=== PATIENT | male | born 1985 | race African-American/Black ===

== ENCOUNTER 2018-10-26 08:38 | Emergency (ER) | payer SELFPAY ==
[~2018-10-26] VITALS: Ht 182.9 cm; Wt 68.2 kg
[~2018-10-26 08:38] MED LIST: RISP1 PO
[2018-10-26] MEDS ORDERED: ALBUTEROL SULFATE 2.5 MG/0.5 ML NEB SOLUTION NEB ONE (09:15)
[2018-10-26] MEDS ORDERED: KETOROLAC TROMETHAMINE 30 MG/ML VIAL IM ONE (09:15)
[2018-10-26] MEDS ORDERED: IPRATROPIUM BROMIDE 0.5 MG/2.5 ML NEB SOLUTION NEB ONE (09:15)
[2018-10-26] MEDS ORDERED: ACETAMINOPHEN 500 MG TABLET PO ONE (09:15)
[2018-10-26] MEDS ORDERED: ALBUTEROL SULFATE HFA 90 MCG/PUFF 8 GM INHALER IH ONE (09:15)
[2018-10-26 10:11] LABS: APPEARANCE,URINE CLEAR (CLEAR); BILIRUBIN,URINE NEGATIVE (NEGATIVE); GLUCOSE, URINE (UA) NEGATIVE (NEGATIVE); KETONES,URINE NEGATIVE (NEGATIVE); LEUKOCYTE ESTERASE ,URINE SMALL (NEGATIVE); NITRATE,URINE NEGATIVE (NEGATIVE); OCCULT BLOOD,URINE NEGATIVE (NEGATIVE); PH,URINE 5.5 (5.0-8.0); PROTEIN,URINE NEGATIVE (NEGATIVE); UROBILINOGEN,URINE 0.2 mg/dL (<=1.0)
[2018-10-26 10:27] LABS: BACTERIA,URINE Rare /HPF (None Seen); RBC,URINE 0-2 /HPF (0-2); SQUAMOUS EPITHELIAL CELL,UR Few /LPF (None Seen)
[2018-10-26] MEDS ORDERED: CefTRIAXone SODIUM 1 GM/VIAL IM ONE (12:00)
[2018-10-26] MEDS ORDERED: LIDOCAINE/PF 1% 2 ML VIAL IM ONE (12:00)
[2018-10-26 12:44] VITALS: BP 141/106
== END 2018-10-26 13:20 | disposition home or self-care (01) ==
LOC: EMS 08:38
DX: N45.1 Epididymitis (principal); F32.9 Major depressive disorder, single episode, unspecified; Z88.0 Allergy status to penicillin
CPT/HCPCS: 76870; 81001; 87491; 87591; 96372; 99284; J0696; J3490; J1885

== ENCOUNTER 2018-11-20 16:31 | Emergency (ER) | payer SELFPAY ==
[~2018-11-20] VITALS: Ht 185.4 cm; Wt 68.2 kg
[2018-11-20] MEDS ORDERED: AZITHROMYCIN 250 MG TABLET PO ONE (18:00)
[2018-11-20] MEDS ORDERED: CefTRIAXone SODIUM 1 GM/VIAL IM ONE (18:00)
[2018-11-20] MEDS ORDERED: LIDOCAINE/PF 1% 2 ML VIAL IM ONE (18:15)
[2018-11-20 18:46] VITALS: BP 121/80
== END 2018-11-20 18:46 | disposition home or self-care (01) ==
LOC: EMS 16:31
DX: N45.1 Epididymitis (principal); F32.9 Major depressive disorder, single episode, unspecified; Z88.0 Allergy status to penicillin
CPT/HCPCS: 96372; 99283; J0696; J3490

== ENCOUNTER 2020-02-02 12:46 | Emergency (ER) | payer MEDICAID ==
[~2020-02-02] VITALS: Ht 182.9 cm; Wt 70.5 kg
[~2020-02-02 12:46] MED LIST changes: -RISP1 PO; +RISP1TAB27 PO
[2020-02-02] MEDS ORDERED: PERTUSS(ACELL),DIPH,TET VAC/PF 0.5 ML VIAL IM ONE (13:45)
[2020-02-02] MEDS ORDERED: IBUPROFEN 400 MG TABLET PO ONE (13:45)
[2020-02-02] MEDS ORDERED: LIDOCAINE/PF 1% 5 ML VIAL INJ ONE (13:45)
[2020-02-02] MEDS ORDERED: BACITRACIN 0.9 GM PACKET OINTMENT TP ONE (13:45)
[2020-02-02 15:08] VITALS: BP 138/85
== END 2020-02-02 15:10 | disposition home or self-care (01) ==
LOC: EMS 12:46
DX: S51.812A Laceration without foreign body of left forearm, initial encounter (principal); F17.210 Nicotine dependence, cigarettes, uncomplicated; F32.9 Major depressive disorder, single episode, unspecified; W26.8XXA Contact with other sharp object(s), not elsewhere classified, initial encounter; Y93.89 Activity, other specified; Y92.89 Other specified places as the place of occurrence of the external cause; Y99.8 Other external cause status
CPT/HCPCS: 12002; 90471; 90715; 99283; 99406; J2001